=== PATIENT | male | born 1950 | race Caucasian/White ===

== ENCOUNTER 2016-12-08 17:58 | Outpatient (CLI) | payer MEDICARE ==
[2016-12-08 18:22] LABS: #Basophils 0.1 thou/uL (0.0-0.2); #Eosinphils 0.1 thou/uL (0.0-0.7); #Lymphocytes 1.9 thou/uL (1.20-3.40); #Monocytes 0.5 thou/uL (0.11-0.59); #Neutrophils 4.7 thou/uL (1.40-6.50); %Basophils 0.9 % (0.0-1.0); %Eosinophils 1.2 % (0.0-10.0); %Lymphocytes 25.8 % (21.0-51.0); %Monocytes 6.8 % (0.0-10.0); %Neutrophils 65.3 % (42.0-75.0); Hemoglobin 15.1 g/dL (14.0-18.0); Mean Corpuscular HGB CONC 32.2 g/dL (32.0-36.0); Mean Corpuscular Hemoglobin 30.6 pg (27.0-31.0); Mean Corpuscular Volume 95.1 fl (80.0-94.0); Mean Platelet Volume 6.8 fL (7.4-10.4); Platelet Count 191 thou/uL (130-400); RBC Distribution Width 11.8 % (11.5-14.5); Red Blood Cell (RBC) Count 4.95 mill/uL (4.70-6.10); White Blood Cell (WBC) Count 7.3 thou/uL (4.8-10.8)
[2016-12-08 18:36] LABS: ALT (SGPT) 19 U/L (8-55); AST (SGOT) 20 U/L (5-34); Albumin 4.1 g/dL (3.4-4.8); Alkaline Phosphatase 83 U/L (40-150); Anion Gap 16 mmol/L (10-20); BUN (Urea Nitrogen) 14 mg/dL (8.4-25.7); Bilirubin, Total 0.4 mg/dL (0.2-1.2); Calc. Creatinine Clearance 0 mL/min (70-130); Carbon Dioxide 23 mmol/L (23-31); Cardiac Risk 5.1 (Less than 4.5); Chloride 107 mmol/L (98-107); Cholesterol 180 mg/dl (< 200 Desired); Estimated GFR-MDRD 50; Globulin 2.7 g/dL (2.4-3.5); Glucose 86 mg/dL (80-115); HDL Cholesterol 35 mg/dL (>60 Neg Risk); LDL Cholesterol, Calculated 103 mg/dL; Phosphorus 2.9 mg/dL (2.3-4.7); Potassium 4.5 mmol/L (3.5-5.1); Protein, Total 6.8 g/dL (5.8-8.1); Sodium 141 mmol/L (136-145); Triglycerides 212 mg/dL (Less than 150)
[2016-12-08 18:37] LABS: Hemoglobin A1c 5.1 % (4.0-6.0)
[2016-12-12 01:09] LABS: Ionized Calcium 6.1 mg/dL (4.5-5.6)
== END 2016-12-08 17:59 | disposition home or self-care (01) ==
LOC: NAVSJIPCSP 17:58
PROVIDERS: ATTEND Internal Medicine
DX: Z13.220 Encounter for screening for lipoid disorders (principal); Z13.1 Encounter for screening for diabetes mellitus; Z00.00 Encounter for general adult medical examination without abnormal findings; E83.52 Hypercalcemia; K52.9 Noninfective gastroenteritis and colitis, unspecified
CPT/HCPCS: 80053; 80061; 82330; 83036; 83970; 84100; 85025; 87015; 87045; 87046; 87177; 87324; 87449; 87899

== ENCOUNTER 2019-02-28 15:48 | Emergency (ER) | payer MEDICARE ==
[2019-02-28 16:37] LABS: #Basophils 0.1 thou/uL (0.0-0.2); #Eosinphils 0.1 thou/uL (0.0-0.7); #Lymphocytes 2.1 thou/uL (1.20-3.40); #Monocytes 0.7 thou/uL (0.11-0.59); #Neutrophils 5.3 thou/uL (1.40-6.50); %Basophils 1.1 % (0.0-1.0); %Eosinophils 1.5 % (0.0-10.0); %Lymphocytes 25.1 % (21.0-51.0); %Monocytes 8.6 % (0.0-10.0); %Neutrophils 63.7 % (42.0-75.0); Hemoglobin 14.1 g/dL (14.0-18.0); Mean Corpuscular HGB CONC 33.2 g/dL (32.0-36.0); Mean Corpuscular Hemoglobin 30.4 pg (27.0-31.0); Mean Corpuscular Volume 91.7 fL (78.0-98.0); Mean Platelet Volume 7.5 fL (7.4-10.4); Platelet Count 237 thou/uL (130-400); RBC Distribution Width 12.1 % (11.5-14.5); Red Blood Cell (RBC) Count 4.63 mill/uL (4.70-6.10); White Blood Cell (WBC) Count 8.3 thou/uL (4.8-10.8)
[2019-02-28 16:48] LABS: Anion Gap 15 mmol/L (10-20); BUN (Urea Nitrogen) 13 mg/dL (8.4-25.7); Calc. Creatinine Clearance 0 mL/min (70-130); Carbon Dioxide 19 mmol/L (23-31); Chloride 111 mmol/L (98-107); Estimated GFR-MDRD 56; Glucose 82 mg/dL (80-115); Potassium 3.3 mmol/L (3.5-5.1); Sodium 142 mmol/L (136-145)
--- NOTE | 2019-02-28 17:20 | RAD ---
PA AND LATERAL VIEWS CHEST: 02/28/19 HISTORY: Dyspnea. FINDINGS: The heart size is normal. The aorta is tortuous. The lungs are expanded without focal areas of consol idation, pneumothoraces, or pleural effusions. There is no evidence of dustin pulmonary edema. There a re degenerative changes in the spine. IMPRESSION: No acute process. POS: DOMINGAH
--- NOTE | 2019-02-28 18:52 | CT ---
CT NECK SOFT TISSUES WITH IV CONTRAST: 02/28/19 HISTORY: Dyspnea. FINDINGS: The aerodigestive airway is patent. No cervical lymphadenopathy is seen. No dense lesions in the thyr oid gland. An 18 mm mass is seen in the posterior aspect of the right lobe of the thyroid gland. It c annot be said with certainty that this is part of the thyroid gland or extrathyroidal. The parotid and submandibular glands are unremarkable. The visualized paranasal sinuses and mastoid a ir cells are well aerated. Upper lung mccarthy are unremarkable. No abnormally loculated fluid collecti on seen to suggest abscess formation. There are degenerative changes in the spine. IMPRESSION: 1. Thyroid lesions as discussed above. These may be better evaluated with thyroid ultrasound. 2. No evidence of abscess formation. POS: DARRIUS
== END 2019-02-28 19:12 | disposition home or self-care (01) ==
LOC: NAV ERS 15:48
DX: E04.1 Nontoxic single thyroid nodule (principal); F41.9 Anxiety disorder, unspecified; F31.9 Bipolar disorder, unspecified; Z79.899 Other long term (current) drug therapy
CPT/HCPCS: 70491; 71046; 80048; 84484; 85025

== ENCOUNTER 2021-07-31 19:30 | Emergency (ER) | payer MEDICARE ==
[2021-07-31 20:11] LABS: #Basophils 0.1 thou/uL (0.0-0.2); #Eosinphils 0.1 thou/uL (0.0-0.7); #Lymphocytes 1.7 thou/uL (1.20-3.40); #Monocytes 1.7 thou/uL (0.11-0.59); #Neutrophils 11.3 thou/uL (1.40-6.50); %Basophils 0.5 % (0.0-1.0); %Eosinophils 0.6 % (0.0-10.0); %Lymphocytes 11.6 % (21.0-51.0); %Monocytes 11.2 % (0.0-10.0); %Neutrophils 76.2 % (42.0-75.0); Hemoglobin 13.6 g/dL (14.0-18.0); Mean Corpuscular HGB CONC 31.3 g/dL (32.0-36.0); Mean Corpuscular Hemoglobin 30.9 pg (27.0-31.0); Mean Corpuscular Volume 98.7 fL (78.0-98.0); Platelet Count 230 thou/uL (130-400); RBC Distribution Width 12.4 % (11.5-14.5); Red Blood Cell (RBC) Count 4.39 mill/uL (4.70-6.10); White Blood Cell (WBC) Count 14.8 thou/uL (4.8-10.8)
[2021-07-31 20:29] LABS: ALT (SGPT) 14 U/L (8-55); AST (SGOT) 20 U/L (5-34); Albumin 3.9 g/dL (3.4-4.8); Alkaline Phosphatase 72 U/L (40-110); Anion Gap 17 mmol/L (10-20); BUN (Urea Nitrogen) 12 mg/dL (8.4-25.7); Bilirubin, Total 0.4 mg/dL (0.2-1.2); Calc. Creatinine Clearance 0 mL/min (70-130); Calcium 11.6 mg/dL (7.8-10.44); Carbon Dioxide 21 mmol/L (23-31); Chloride 108 mmol/L (98-107); Globulin 3.3 g/dL (2.4-3.5); Glucose 108 mg/dL (80-115); Potassium 4.3 mmol/L (3.5-5.1); Protein, Total 7.2 g/dL (5.8-8.1); Sodium 142 mmol/L (136-145)
[2021-07-31 20:30] LABS: Acetaminophen Less than 10.0 mcg/mL (10.0-30.0); Alcohol Less than 10 mg/dL (Less than 10); Salicylate Less than 8.0 mg/dL (15.0-30.0)
[2021-07-31 20:43] LABS: Bilirubin Negative (Negative); Blood, Urine Negative (Negative); Clarity Clear (Clear); Glucose, Urine (Dipstick) Negative (Negative); Ketone, Urine Negative (Negative); Leukocyte Negative (Negative); Nitrite Negative (Negative); Protein, Urine (Dipstick) Negative (Neg-Trace); Specific Gravity, Urine 1.015 (1.005-1.030); Urobilinogen 0.2 mg/dL (Less than 2)
[2021-07-31] MEDS ORDERED: Acetaminophen 325 MG TAB ONE (20:50)
[2021-07-31 20:52] LABS: Amphetamine Not Detected (NotDetected); Cocaine Metabolite Screen Not Detected (NotDetected); Methamphetamine Not Detected (NotDetected); Opiate Screen Not Detected (NotDetected); Phencyclidine (PCP) Not Detected (NotDetected); THC/Cannabinoid Screen Not Detected (NotDetected)
[2021-07-31 20:53] LABS: Barbiturates Screen Detected (NotDetected); Benzodiazepine Screen Detected (NotDetected); Medtox Control Line Valid? VALID (VALID); Methadone Not Detected (NotDetected); Oxycodone Screen Not Detected (NotDetected); Tricyclic Screen Not Detected (NotDetected)
[2021-07-31 21:02] LABS: SARS-CoV-2 NAA Rapid Test Not Detected (NotDetected)
[2021-07-31] MEDS ORDERED: Sodium Chloride 0.9% 1,000 ML ONE (21:52)
== END 2021-07-31 23:02 | disposition short-term general hospital (02) ==
LOC: NAV ERS 19:30
DX: R41.82 Altered mental status, unspecified (principal); D72.829 Elevated white blood cell count, unspecified; Z20.822 Contact with and (suspected) exposure to COVID-19; F31.9 Bipolar disorder, unspecified
CPT/HCPCS: 70450; 71045; 80053; 80306; 80307; 81003; 83605; 84443; 84484; 85025; 93005; 94760; J7050; U0002

== ENCOUNTER 2022-01-27 15:39 | Emergency (ER) | payer MEDICARE | END 2022-01-27 16:39 | disposition home or self-care (01) | LOC: NAV ERS 15:39 | DX: M25.562 Pain in left knee (principal); Z79.899 Other long term (current) drug therapy ==